=== PATIENT | male | born 1950 | race Caucasian/White ===

== ENCOUNTER 2017-07-08 08:35 | Outpatient (CLI) ==
--- NOTE | 2017-07-08 10:11 | CT ---
EXAM: CT soft tissue neck with contrast. HISTORY: Left submandibular gland swelling. COMPARISON: None available. TECHNIQUE: Multiple axial images of the neck were obtained following intravenous administration of i odinated contrast, low osmolar. Images were reformatted in the sagittal and coronal planes. FINDINGS: No intracranial or intraorbital abnormality identified. Paranasal sinuses and mastoid air cells are clear. The parotid and submandibular glands appear unremarkable. In particular, no abnormalities seen adjac ent to the left submandibular gland. Nonenlarged lymph nodes present in the neck. No subcutaneous e fer or fluid collections noted. The pharyngeal soft tissues, epiglottis and laryngeal structures are without localized abnormality. Airway is normal in caliber. Thyroid gland is normal in size. Vascular structures of the neck are p atent. The lung apices are clear. Degenerative changes are present in the spine. IMPRESSION: No acute abnormality of the neck.
== END 2017-07-08 08:36 | disposition home or self-care (01) ==
LOC: RAD 08:35
PROVIDERS: ATTEND Internal Medicine
DX: R59.0 Localized enlarged lymph nodes (principal)